=== PATIENT | female | born 1995 | race Caucasian/White ===

== ENCOUNTER 2018-05-07 10:05 | Observation (INO) | payer BC, MEDICAID ==
[~2018-05-07] VITALS: Ht 175.3 cm; Wt 113.9 kg
[~2018-05-07 10:05] MED LIST: PREN1TAB89 PO
[2018-05-07 12:16] VITALS: BP 114/74
== END 2018-05-07 11:24 | disposition home or self-care (01) ==
LOC: LDH 10:05
DX: O36.8130 Decreased fetal movements, third trimester, not applicable or unspecified (principal); Z3A.37 37 weeks gestation of pregnancy
CPT/HCPCS: G0378